=== PATIENT | male | born 1995 | race African-American/Black ===

== ENCOUNTER 2016-08-05 21:27 | Emergency (ER) | payer MEDICARE, OTHER ==
[~2016-08-05] VITALS: Ht 172.7 cm; Wt 73.0 kg
[~2016-08-05 21:27] MED LIST: MONT10TA4 PO; PULM90IN INH; VENTAER INH
[2016-08-05 21:29] VITALS: BP 152/88; PULSE 116; RESP 16; TEMP 97.8; O2SAT 100
[2016-08-06 03:14] LABS: AUTOMATED NEUTROPHIL # 5.5 TH/MM3 (1.8-7.7); BASOPHIL % 0.2 % (0.0-2.0); EOSINOPHIL # 0.2 TH/MM3 (0-0.4); EOSINOPHIL % 2.1 % (0.0-4.0); HEMATOCRIT 41.4 % (39.0-51.0); HEMO FLAGS DIFF FINAL; LYMPH % 26.6 % (9.0-44.0); LYMPHOCYTE # 2.3 TH/MM3 (1.0-4.8); MEAN CELL VOLUME 89.8 FL (80.0-100.0); MEAN CORPUSCULAR HEMOGLOBIN 30.7 PG (27.0-34.0); MEAN CORPUSCULAR HGB CONC 34.2 % (32.0-36.0); MONO % 8.4 % (0.0-8.0); NEUT % 62.7 % (16.0-70.0); PLATELET COUNT 287 TH/MM3 (150-450); RED BLOOD COUNT 4.61 MIL/MM3 (4.50-5.90); RED CELL DISTRIBUTION WIDTH 12.1 % (11.6-17.2); WHITE BLOOD COUNT 8.8 TH/MM3 (4.0-11.0)
[2016-08-06 03:20] LABS: BLOOD, URINE NEG (NEG); COMMENT (UR) CULT NOT INDICATED; CULTURE IF INDICATED CULT NOT INDICATED; GLUCOSE,URINE NEG (NEG); KETONE, URINE 40 mg/dL (NEG); MUCUS URINE MANY /lpf (OCC); NITRITE,URINE NEG (NEG); URINE COLOR DARK-YELLOW (YELLW/STRAW)
[2016-08-06] MEDS ORDERED: LORA10TA PO (03:30)
[2016-08-06 03:34] LABS: ALT (GPT) 24 U/L (12-78); ANION GAP 8 MEQ/L (5-15); AST (GOT) 18 U/L (15-37); BLOOD UREA NITROGEN 12 MG/DL (7-18); CHLORIDE 105 MEQ/L (98-107); GLOMERULAR FILTRATION RATE 106 ML/MIN (>89); POTASSIUM 3.9 MEQ/L (3.5-5.1); SODIUM (NA) 141 MEQ/L (136-145)
[2016-08-06 03:36] LABS: ALKALINE PHOSPHATASE 71 U/L (45-117); TOTAL BILIRUBIN ADULT 0.7 MG/DL (0.2-1.0)
[2016-08-06] MEDS ORDERED: PRED20 PO (03:58)
[2016-08-06] MEDS ORDERED: DICY10 PO (03:58)
--- NOTE | 2016-08-06 03:59 | PD ---
HPI Chief Complaint: Abdominal Pain Time Seen by Provider: 03:28 Travel History International Travel<30 days: No Contact w/Intl Traveler<30days: No Traveled to known affect area: No History of Present Illness HPI 20-year-old male pleasant no acute distress arrives complaining of pain in the abdomen. As a crampy quality. His been present for one day. His sister had similar complaint. He had one episode of diarrhea and one episode of vomiting. Both are nonbloody. Onset gradual. He reports history of asthma as well as wheezing. It is been slightly worse and normal for 3 days. He's had an occasional cough but no fever. His inhaler has been helpful. He has not been on steroids for 2 months. [facility] Past Medical History Asthma: Yes Cardiovascular Problems: No Diminished Hearing: No Gastrointestinal Disorders: No Respiratory: Yes (ASTHMA) Integumentary: Yes (ACNE) Immunizations Current: Yes Sickle Cell Disease: No Tetanus Vaccination: Unknown Influenza Vaccination: Yes Past Surgical History Surgical History: No Previous Surgery Other Surgery: Yes (HERNIA REPAIR AN ) Social History Alcohol Use: No Tobacco Use: Yes (black & milds) Substance Use: No Allergies-Medications (Allergen,Severity, Reaction): Coded Allergies: Amoxicillin (Verified Adverse Reaction, Severe, Nausea/Vomiting, 08/05/16) Naproxen (Verified Adverse Reaction, Mild, 08/05/16) GI VOMITING AND DIARRHEA Reported Meds & Prescriptions Reported Meds & Active Scripts Active Ventolin Hfa 18 GM Inh (Albuterol Sulfate) 90 Mcg/Act Aer 2 Puff INH Q4-6H PRN Reported Loratadine 10 Mg Tab 10 Mg PO DAILY Review of Systems Except as stated in HPI: all other systems reviewed are Neg General / Constitutional: No: Fever Gastrointestinal: Positive: Other (abdominal cramping) Physical Exam Narrative GENERAL: 20 yo F, NAD, WNWD SKIN: Warm and dry. HEAD: Atraumatic. Normocephalic. EYES: Pupils equal and round. No scleral icterus. No injection or drainage. ENT: No nasal bleeding or discharge. Mucous membranes pink and moist. NECK: Trachea midline. No JVD. CARDIOVASCULAR: Regular rate and rhythm. RESPIRATORY: No accessory muscle use. Clear to auscultation. Breath sounds equal bilaterally. GASTROINTESTINAL: Soft. No tenderness at McBurney's point. MUSCULOSKELETAL: Extremities without clubbing, cyanosis, or edema. No obvious deformities. NEUROLOGICAL: Awake and alert. No obvious cranial nerve deficits. Motor grossly within normal limits. Five out of 5 muscle strength in the arms and legs. Normal speech. PSYCHIATRIC: Appropriate mood and affect; insight and judgment normal. Data Data Last Documented VS Vital Signs Date Time Temp Pulse Resp B/P Pulse Ox O2 Delivery O2 Flow Rate FiO2 08/06/16 03:27 16 08/05/16 21:29 97.8 116 152/88 100 Room Air Orders Complete Blood Count With Diff (08/06/16 02:41) Comprehensive Metabolic Panel (08/06/16 02:41) Urinalysis - C+S If Indicated (08/06/16 02:41) Lipase (08/06/16 02:41) Labs Laboratory Tests Test 08/06/16 02:50 White Blood Count 8.8 TH/MM3 Red Blood Count 4.61 MIL/MM3 Hemoglobin 14.1 GM/DL Hematocrit 41.4 % Mean Corpuscular Volume 89.8 FL Mean Corpuscular Hemoglobin 30.7 PG Mean Corpuscular Hemoglobin 34.2 % Concent Red Cell Distribution Width 12.1 % Platelet Count 287 TH/MM3 Mean Platelet Volume 9.0 FL Neutrophils (%) (Auto) 62.7 % Lymphocytes (%) (Auto) 26.6 % Monocytes (%) (Auto) 8.4 % Eosinophils (%) (Auto) 2.1 % Basophils (%) (Auto) 0.2 % Neutrophils # (Auto) 5.5 TH/MM3 Lymphocytes # (Auto) 2.3 TH/MM3 Monocytes # (Auto) 0.7 TH/MM3 Eosinophils # (Auto) 0.2 TH/MM3 Basophils # (Auto) 0.0 TH/MM3 CBC Comment DIFF FINAL Differential Comment Urine Color DARK-YELLOW Urine Turbidity CLEAR Urine pH 6.0 Urine Specific [place] 1.039 Urine Protein 30 mg/dL Urine Glucose (UA) NEG mg/dL Urine Ketones 40 mg/dL Urine Occult Blood NEG Urine Nitrite NEG Urine Bilirubin NEG Urine Urobilinogen GREATER THAN 12.0 MG/DL Urine Leukocyte Esterase NEG Urine RBC 3 /hpf Urine WBC 2 /hpf Urine Mucus MANY /lpf Microscopic Urinalysis Comment CULT NOT INDICATED Sodium Level 141 MEQ/L Potassium Level 3.9 MEQ/L Chloride Level 105 MEQ/L Carbon Dioxide Level 28.0 MEQ/L Anion Gap 8 MEQ/L Blood Urea Nitrogen 12 MG/DL Creatinine 1.06 MG/DL Estimat Glomerular Filtration 106 ML/MIN Rate Random Glucose 70 MG/DL Calcium Level 9.0 MG/DL Total Bilirubin 0.7 MG/DL Aspartate Amino Transf 18 U/L (AST/SGOT) Alanine Aminotransferase 24 U/L (ALT/SGPT) Alkaline Phosphatase 71 U/L Total Protein 9.8 GM/DL Albumin 3.8 GM/DL Lipase 118 U/L [facility] Medical Decision Making Medical Screen Exam Complete: Yes Emergency Medical Condition: Yes Medical Record Reviewed: Yes Differential Diagnosis Constipation, Gastritis, Acute Cholecystitis, Biliary Colic, Pancreatitis, GALAVIZ , Hepatitis, Bowel Obstruction, Cystitis, Mesenteric Ischemia, AAA, Appendicitis , Renal Stone/Hydronephrosis, GERD, perforated viscous Narrative Course LFTs normal Lipase 118 UA: No UTI CBC & BMP Diagram 08/06/16 02:50 Abdomen benign. Return precautions discussed. Diagnosis Primary Impression: Abdominal cramping Additional Impression: Asthma Qualified Code: J45.20 - Mild intermittent asthma without complication Referrals: Primary Care Physician 2 days Additional Instructions: You have a choice when it comes to health care, and we are glad that you chose [facility]. Hopefully, we have met your expectations on today's visit. You are welcome to return to [facility] at any time, as we are committed to meeting the health care needs of our community. Med/Other Pt SpecificInfo: Prescription(s) given Scripts Dicyclomine (Bentyl)10 Mg Cap10 Mg PO TID PRN (Bowel Management) #10 CAP Ref 0 Prov:Conrad Flores MD 08/06/16 Prednisone 20 Mg Tab40 Mg PO DAILY 4 Days Ref 0 Prov:Conrad Flores MD 08/06/16 Disposition: DISCHARGE HOME Condition: Stable Conrad Flores MD Aug 06, 2016 03:59
[2016-08-06] MEDS ORDERED: DICYCLOMINE HCL 10 MG CAP PO ONE (04:30)
== END 2016-08-06 04:38 | disposition home or self-care (01) ==
LOC: NEPE 21:27
DX: R10.9 Unspecified abdominal pain (principal); J45.20 Mild intermittent asthma, uncomplicated; R19.7 Diarrhea, unspecified; R11.10 Vomiting, unspecified; Z72.0 Tobacco use
CPT/HCPCS: 80053; 81001; 83690; 85025; 99284

== ENCOUNTER 2016-12-04 11:18 | Emergency (ER) | payer MEDICARE, OTHER ==
[~2016-12-04] VITALS: Ht 172.7 cm; Wt 80.0 kg
[~2016-12-04 11:18] MED LIST changes: +DICY10 PO; +LORA10TA PO; -MONT10TA4 PO; +PRED20 PO; -PULM90IN INH
[2016-12-04 11:19] VITALS: BP 139/80; PULSE 75; RESP 20; TEMP 97.6; O2SAT 100
--- NOTE | 2016-12-04 11:25 | PD ---
Physical Exam Date Seen by Provider: Dec 04, 2016 Time Seen by Provider: 11:24 Data Data Last Documented VS Vital Signs Date Time Temp Pulse Resp B/P Pulse Ox O2 Delivery O2 Flow Rate FiO2 12/04/16 11:19 97.6 75 20 139/80 100 Room Air MDM Supervised Visit with ABDIRIZAK: No Narrative Course 21 YO male right RLQ 9/10 abdominal pain x 6 days. --N/V, fever, dysuria. Vitals reviewed. Awaiting bed placement. Candie Riley Dec 04, 2016 11:25
[2016-12-04] MEDS ORDERED: SODIUM CHLOR 0.9% 1000 ML INJ 1,000 ML IV SCH (11:33)
--- NOTE | 2016-12-04 11:33 | PD ---
HPI . Abdominal pain for 3-4 days Chief Complaint: Abdominal Pain Time Seen by Provider: 11:27 Travel History International Travel<30 days: No Contact w/Intl Traveler<30days: No Traveled to known affect area: No History of Present Illness HPI 21-year-old male with history of asthma and allergies here with complaints of epigastric abdominal pain for the past 3-4 days. Patient tells me that he developed abdominal pain out of the blue and thinks that it may be related to him drinking alcohol and not eating regularly. He rates the pain as 10/10 without any radiation. He has a hard time describing it. He admits to intermittent nausea and tells me that it's very mild today. He is not having episodes of vomiting, diarrhea or constipation. He does admit to binge drinking on the weekends to where he is intoxicated. For the past several days he is only been eating bread, as this does not cause any discomfort to his stomach. He has not seen anyone else about this pain. He denies any chest pain or shortness of breath. He has no other complaints. In regards to his naproxen allergy, he says he thought he was allergic but he is not allergic. PFSH Past Medical History Asthma: Yes Cardiovascular Problems: No Diminished Hearing: No Gastrointestinal Disorders: No Respiratory: Yes (ASTHMA) Integumentary: Yes (ACNE) Immunizations Current: Yes Sickle Cell Disease: No Past Surgical History Other Surgery: Yes (HERNIA REPAIR AN ) Social History Alcohol Use: No Tobacco Use: Yes (black & milds) Substance Use: No Allergies-Medications (Allergen,Severity, Reaction): Coded Allergies: Amoxicillin (Verified Adverse Reaction, Severe, Nausea/Vomiting, 08/05/16) Naproxen (Verified Adverse Reaction, Mild, 08/05/16) GI VOMITING AND DIARRHEA Reported Meds & Prescriptions Reported Meds & Active Scripts Active Carafate Liq (Sucralfate) 1 Gm/10 Ml Susp 1 Gm PO QID 5 Days on empty stomach Ventolin Hfa 18 GM Inh (Albuterol Sulfate) 90 Mcg/Act Aer 2 Puff INH Q4-6H PRN Reported Allergy Relief (Loratadine) 10 Mg Tab 10 Mg PO DAILY Review of Systems General / Constitutional: No: Fever Eyes: No: Visual changes HENT: No: Headaches Cardiovascular: No: Chest Pain or Discomfort Respiratory: No: Shortness of Breath Gastrointestinal: Positive: Nausea, Abdominal Pain, No: Vomiting, Diarrhea Genitourinary: No: Dysuria Musculoskeletal: No: Pain Skin: No Rash Neurologic: No: Weakness Psychiatric: No: Depression Endocrine: No: Polydipsia Hematologic/Lymphatic: No: Easy Bruising Physical Exam Narrative GENERAL: AAO x 3, no acute distress, Well-nourished, well-developed patient. SKIN: Warm and dry. No visible rashes or bruising. Normal skin turgor HEAD: Normocephalic and atraumatic. EYES: No scleral icterus. No injection or drainage. EOM intact, PERRLA ENT: No nasal drainage noted. Mucous membranes pink. Airway patent. Dry mucous membranes. NECK: Supple, trachea midline. No JVD. No lymphadenopathy CARDIOVASCULAR: Regular rate and rhythm without murmurs, gallops, or rubs. RESPIRATORY: Breath sounds equal bilaterally. No accessory muscle use. No rhonchi or rales. GASTROINTESTINAL: Abdomen soft, tenderness to palpation of the epigastric area, no rebound or guarding. No McBurney's point tenderness. EXTREMITIES: No cyanosis or edema. BACK: Nontender without obvious deformity. No CVA tenderness. 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 Data Data Last Documented VS Vital Signs Date Time Temp Pulse Resp B/P Pulse Ox O2 Delivery O2 Flow Rate FiO2 12/04/16 11:38 18 12/04/16 11:19 97.6 75 139/80 100 Room Air Orders Complete Blood Count With Diff (12/04/16 11:33) Comprehensive Metabolic Panel (12/04/16 11:33) Lipase (12/04/16 11:33) Urinalysis - C+S If Indicated (12/04/16 11:33) Ct Abd/Pel W Iv Contrast(Rout) (12/04/16 11:33) Iv Access Insert/Monitor (12/04/16 11:33) NPO (12/04/16 11:33) Ondansetron Inj (Zofran Inj) (12/04/16 11:45) Sodium Chlor 0.9% 1000 Ml Inj (Ns 1000 M (12/04/16 11:33) Sodium Chloride 0.9% Flush (Ns Flush) (12/04/16 11:45) Acetaminophen (Tylenol) (12/04/16 11:45) Oral Contrast - Adult (12/04/16 11:38) Diatrizoate Liq ( Gastroview Liq) (12/04/16 11:47) Iohexol 350 Inj (Omnipaque 350 Inj) (12/04/16 13:35) Labs Laboratory Tests Test 12/04/16 12/04/16 11:53 11:57 Urine Color YELLOW Urine Turbidity HAZY Urine pH 8.5 Urine Specific [place] 1.032 Urine Protein 30 mg/dL Urine Glucose (UA) NEG mg/dL Urine Ketones NEG mg/dL Urine Occult Blood NEG Urine Nitrite NEG Urine Bilirubin NEG Urine Urobilinogen 4.0 MG/DL Urine Leukocyte Esterase NEG Urine RBC 1 /hpf Urine WBC 2 /hpf Urine Squamous Epithelial <1 /hpf Cells Urine Mucus FEW /lpf Microscopic Urinalysis Comment CULT NOT INDICATED White Blood Count 4.4 TH/MM3 Red Blood Count 4.63 MIL/MM3 Hemoglobin 13.6 GM/DL Hematocrit 42.3 % Mean Corpuscular Volume 91.4 FL Mean Corpuscular Hemoglobin 29.4 PG Mean Corpuscular Hemoglobin 32.1 % Concent Red Cell Distribution Width 12.1 % Platelet Count 274 TH/MM3 Mean Platelet Volume 8.8 FL Neutrophils (%) (Auto) 54.2 % Lymphocytes (%) (Auto) 33.8 % Monocytes (%) (Auto) 10.1 % Eosinophils (%) (Auto) 1.6 % Basophils (%) (Auto) 0.3 % Neutrophils # (Auto) 2.4 TH/MM3 Lymphocytes # (Auto) 1.5 TH/MM3 Monocytes # (Auto) 0.4 TH/MM3 Eosinophils # (Auto) 0.1 TH/MM3 Basophils # (Auto) 0.0 TH/MM3 CBC Comment DIFF FINAL Differential Comment Sodium Level 141 MEQ/L Potassium Level 3.4 MEQ/L Chloride Level 104 MEQ/L Carbon Dioxide Level 30.6 MEQ/L Anion Gap 6 MEQ/L Blood Urea Nitrogen 14 MG/DL Creatinine 1.15 MG/DL Estimat Glomerular Filtration 96 ML/MIN Rate Random Glucose 90 MG/DL Calcium Level 9.0 MG/DL Total Bilirubin 0.4 MG/DL Aspartate Amino Transf 19 U/L (AST/SGOT) Alanine Aminotransferase 23 U/L (ALT/SGPT) Alkaline Phosphatase 70 U/L Total Protein 9.6 GM/DL Albumin 4.1 GM/DL Lipase 120 U/L [facility] Medical Decision Making Medical Screen Exam Complete: Yes Emergency Medical Condition: Yes Medical Record Reviewed: Yes Differential Diagnosis Gastric ulcer, peptic ulcer disease, cholecystitis, cholelithiasis, appendicitis , Narrative Course Last Impressions Abdomen/Pelvis CT 12/04/16 1133 Signed Impressions: Service Date/Time: Sunday, December 04, 2016 13:22 - CONCLUSION: Negative exam. No acute intracranial or pelvic process to explain current clinical symptoms. Aidan Hansen MD Laboratory Tests Test 12/04/16 12/04/16 11:53 11:57 Urine Color YELLOW Urine Turbidity HAZY Urine pH 8.5 Urine Specific [place] 1.032 Urine Protein 30 mg/dL Urine Glucose (UA) NEG mg/dL Urine Ketones NEG mg/dL Urine Occult Blood NEG Urine Nitrite NEG Urine Bilirubin NEG Urine Urobilinogen 4.0 MG/DL Urine Leukocyte Esterase NEG Urine RBC 1 /hpf Urine WBC 2 /hpf Urine Squamous Epithelial <1 /hpf Cells Urine Mucus FEW /lpf Microscopic Urinalysis Comment CULT NOT INDICATED White Blood Count 4.4 TH/MM3 Red Blood Count 4.63 MIL/MM3 Hemoglobin 13.6 GM/DL Hematocrit 42.3 % Mean Corpuscular Volume 91.4 FL Mean Corpuscular Hemoglobin 29.4 PG Mean Corpuscular Hemoglobin 32.1 % Concent Red Cell Distribution Width 12.1 % Platelet Count 274 TH/MM3 Mean Platelet Volume 8.8 FL Neutrophils (%) (Auto) 54.2 % Lymphocytes (%) (Auto) 33.8 % Monocytes (%) (Auto) 10.1 % Eosinophils (%) (Auto) 1.6 % Basophils (%) (Auto) 0.3 % Neutrophils # (Auto) 2.4 TH/MM3 Lymphocytes # (Auto) 1.5 TH/MM3 Monocytes # (Auto) 0.4 TH/MM3 Eosinophils # (Auto) 0.1 TH/MM3 Basophils # (Auto) 0.0 TH/MM3 CBC Comment DIFF FINAL Differential Comment Sodium Level 141 MEQ/L Potassium Level 3.4 MEQ/L Chloride Level 104 MEQ/L Carbon Dioxide Level 30.6 MEQ/L Anion Gap 6 MEQ/L Blood Urea Nitrogen 14 MG/DL Creatinine 1.15 MG/DL Estimat Glomerular Filtration 96 ML/MIN Rate Random Glucose 90 MG/DL Calcium Level 9.0 MG/DL Total Bilirubin 0.4 MG/DL Aspartate Amino Transf 19 U/L (AST/SGOT) Alanine Aminotransferase 23 U/L (ALT/SGPT) Alkaline Phosphatase 70 U/L Total Protein 9.6 GM/DL Albumin 4.1 GM/DL Lipase 120 U/L 21-year-old male here with complaints of epigastric abdominal pain for the past 3-4 days. On physical examination he has tenderness to the epigastric area on deep palpation. He does not have any McBurney point tenderness, rebound or guarding. He also appears dehydrated. Labs and CT scan of abdomen and pelvis have been ordered. I have provided him with IV fluids. He does report some mild nausea, therefore I have given him some Zofran. There are no acute findings to explain patient's symptoms. It is possible he has a small ulcer. I have provided him some carafate. I recommend f/u with PCP and GI is symptoms continue. Patient verbalized understanding of instructions, questions were answered, and thanked me for their care. I advised them if their condition worsens, please return to the nearest emergency room for further care. Diagnosis Primary Impression: Abdominal cramping Patient Instructions: General Instructions Additional Instructions: Please return to emergency department if your symptoms return or worsen. Follow up with your primary care provider. Take medications as prescribed. Med/Other Pt SpecificInfo: Prescription(s) given Scripts Sucralfate Liq (Carafate Liq)1 Gm/10 Ml Susp1 Gm PO QID 5 Days Ref 0 on empty stomach Prov:Issa Mena MD 12/04/16 Disposition: 01 DISCHARGE HOME Condition: Stable Julianna Harris Dec 04, 2016 11:33
[2016-12-04] MEDS ORDERED: ALLE10TA PO (11:37)
[2016-12-04] MEDS ORDERED: ONDANSETRON HCL 4 MG/2 ML VIAL IVP ONE (11:45)
[2016-12-04] MEDS ORDERED: SODIUM CHLORIDE 0.9% FLUSH 10 ML FLUSH IV FLUSH PRN (11:45)
[2016-12-04] MEDS ORDERED: ACETAMINOPHEN 325 MG TAB PO ONE (11:45)
[2016-12-04] MEDS ORDERED: DIATRIZOATE MEGLUM/DIATRIZOATE SOD 9 ML CUP ONE (11:47)
[2016-12-04 12:09] LABS: AUTOMATED NEUTROPHIL # 2.4 TH/MM3 (1.8-7.7); BASOPHIL % 0.3 % (0.0-2.0); EOSINOPHIL # 0.1 TH/MM3 (0-0.4); EOSINOPHIL % 1.6 % (0.0-4.0); HEMATOCRIT 42.3 % (39.0-51.0); HEMO FLAGS DIFF FINAL; LYMPH % 33.8 % (9.0-44.0); LYMPHOCYTE # 1.5 TH/MM3 (1.0-4.8); MEAN CELL VOLUME 91.4 FL (80.0-100.0); MEAN CORPUSCULAR HEMOGLOBIN 29.4 PG (27.0-34.0); MEAN CORPUSCULAR HGB CONC 32.1 % (32.0-36.0); MONO % 10.1 % (0.0-8.0); NEUT % 54.2 % (16.0-70.0); PLATELET COUNT 274 TH/MM3 (150-450); RED BLOOD COUNT 4.63 MIL/MM3 (4.50-5.90); RED CELL DISTRIBUTION WIDTH 12.1 % (11.6-17.2); WHITE BLOOD COUNT 4.4 TH/MM3 (4.0-11.0)
[2016-12-04 12:09] LABS: BLOOD, URINE NEG (NEG); COMMENT (UR) CULT NOT INDICATED; CULTURE IF INDICATED CULT NOT INDICATED; GLUCOSE,URINE NEG (NEG); KETONE, URINE NEG (NEG); MUCUS URINE FEW /lpf (OCC); NITRITE,URINE NEG (NEG); PH, URINE 8.5 (5.0-8.5); SQUAMOUS EPITHELIAL CELL URINE <1 /hpf (0-5); URINE COLOR YELLOW (YELLW/STRAW)
[2016-12-04 12:35] LABS: ANION GAP 6 MEQ/L (5-15); AST (GOT) 19 U/L (15-37); BICARBONATE 30.6 MEQ/L (21.0-32.0); BLOOD UREA NITROGEN 14 MG/DL (7-18); CHLORIDE 104 MEQ/L (98-107); GLOMERULAR FILTRATION RATE 96 ML/MIN (>89); POTASSIUM 3.4 MEQ/L (3.5-5.1); SODIUM (NA) 141 MEQ/L (136-145)
[2016-12-04 12:38] LABS: ALKALINE PHOSPHATASE 70 U/L (45-117); ALT (GPT) 23 U/L (12-78); TOTAL BILIRUBIN ADULT 0.4 MG/DL (0.2-1.0)
[2016-12-04] MEDS ORDERED: IOHEXOL 350 MG/ML 10 ML VIAL (for RAD DIAG) IV ONE (13:35)
--- NOTE | 2016-12-04 14:12 | RADRPT ---
EXAM DATE/TIME: 12/04/2016 13:22 [place] COMPARISON: CT ABDOMEN & PELVIS W CONTRAST, March 17, 2015, 7:56. INDICATIONS : Epigastric pain for 4 days. IV CONTRAST: 95 cc Omnipaque 350 (iohexol) IV ORAL CONTRAST: Prescribed oral contrast ingested. RADIATION DOSE: 6.10 CTDIvol (mGy) MEDICAL HISTORY : Asthma SURGICAL HISTORY : hernia repair ENCOUNTER: Initial ACUITY: 1 day PAIN SCALE: 2/10 LOCATION: upper quadrant TECHNIQUE: Volumetric scanning of the abdomen and pelvis was performed. Using automated exposure control and ad justment of the mA and/or kV according to patient size, radiation dose was kept as low as reasonably achievable to obtain optimal diagnostic quality images. FINDINGS: LOWER LUNGS: The visualized lower lungs are clear. LIVER: Homogeneous density without lesion. There is no dilation of the biliary tree. No calcified gallston es. SPLEEN: Normal size without lesion. PANCREAS: Within normal limits. KIDNEYS: Normal in size and shape. There is no mass, stone or hydronephrosis. ADRENAL GLANDS: Within normal limits. VASCULAR: There is no aortic aneurysm. BOWEL/MESENTERY: The stomach, small bowel, and colon demonstrate no acute abnormality. There is no free intraperitone al air or fluid. ABDOMINAL WALL: Within normal limits. RETROPERITONEUM: There is no lymphadenopathy. BLADDER: No wall thickening or mass. REPRODUCTIVE: Within normal limits. INGUINAL: There is no lymphadenopathy or hernia. MUSCULOSKELETAL: Within normal limits for patient age. CONCLUSION: Negative exam. No acute intracranial or pelvic process to explain current clinical symptoms. Aidan Hansen MD on December 04, 2016 at 14:08 Board Certified Radiologist. This report was verified electronically.
[2016-12-04] MEDS ORDERED: CARA1SUS3 PO (14:16)
== END 2016-12-04 14:37 | disposition home or self-care (01) ==
LOC: NEPD 11:18
DX: R10.13 Epigastric pain (principal); J45.909 Unspecified asthma, uncomplicated; Z72.0 Tobacco use
CPT/HCPCS: 74177; 80053; 81001; 83690; 85025; 96361; 96374; 99285; J2405; J7030; Q9963; Q9967

== ENCOUNTER 2017-06-27 22:07 | Emergency (ER) | payer MEDICARE, OTHER ==
[~2017-06-27] VITALS: Ht 177.8 cm; Wt 73.5 kg
[~2017-06-27 22:07] MED LIST changes: +CARA1SUS3 PO; +CEPH-460 PO; -DICY10 PO; +LORA-650 PO; -LORA10TA PO; -PRED20 PO
[2017-06-27 22:14] VITALS: BP 134/69; PULSE 95; RESP 16; TEMP 98.4; O2SAT 97
[2017-06-27] MEDS ORDERED: PRED5TAB PO (22:24)
[2017-06-27] MEDS ORDERED: MONT10TA2 PO (22:24)
[2017-06-27] MEDS ORDERED: TRAM50TA PO (22:31)
--- NOTE | 2017-06-27 22:34 | PD ---
HPI Chief Complaint: Oral / Dental Pain or Problem Time Seen by Provider: 22:22 Travel History International Travel<30 days: No Contact w/Intl Traveler<30days: No Traveled to known affect area: No History of Present Illness HPI This patient complains of dental pain. Duration 2 months. Severity is mild. No alleviating factors. He has not been to a dentist [facility] Past Medical History Asthma: Yes Cardiovascular Problems: No Diminished Hearing: No Gastrointestinal Disorders: No Respiratory: Yes (ASTHMA) Integumentary: Yes (ACNE) Immunizations Current: Yes Sickle Cell Disease: No Tetanus Vaccination: > 5 Years Influenza Vaccination: Yes Past Surgical History Other Surgery: Yes (HERNIA REPAIR AN INFANT) Social History Alcohol Use: No Tobacco Use: Yes (black & milds) Substance Use: No Allergies-Medications (Allergen,Severity, Reaction): Coded Allergies: amoxicillin (Unverified Adverse Reaction, Severe, Nausea/Vomiting, ) naproxen (Unverified Adverse Reaction, Mild, 06/27/17) GI VOMITING AND DIARRHEA Reported Meds & Prescriptions Reported Meds & Active Scripts Active Tramadol (Tramadol HCl) 50 Mg Tab 50 Mg PO Q6H PRN Ventolin Hfa 18 GM Inh (Albuterol Sulfate) 90 Mcg/Act Aer 2 Puff INH Q4-6H PRN Reported Prednisone 5 Mg Tab 5 Mg PO DAILY Singulair (Montelukast Sodium) 10 Mg Tab 10 Mg PO HS Review of Systems General / Constitutional: No: Fever HENT: No: Headaches Cardiovascular: No: Chest Pain or Discomfort Physical Exam Narrative SKIN: Focused skin assessment reveals no rash or ulcers. Skin is warm and dry. Palpation shows no induration or nodules. NECK: Symmetrical appearance, midline trachea. No mass or crepitus. Thyroid without enlargement, tenderness, or mass. Oral cavity: No gingivitis. Uvula midline. Has a filling. Tooth he's having pain in looks normal Data Data Last Documented VS Vital Signs Date Time Temp Pulse Resp B/P (MAP) Pulse Ox O2 Delivery O2 Flow Rate FiO2 06/27/17 22:25 (90) 06/27/17 22:14 98.4 95 16 97 MDM Medical Decision Making Medical Screen Exam Complete: Yes Emergency Medical Condition: Yes Medical Record Reviewed: Yes Differential Diagnosis Dental pain, cavity, gingivitis Narrative Course I have reviewed the patient's electronic medical record. Nothing really objective to see here. He has 2 months of dental pain. He should get a dental evaluation. I wrote him 15 tramadol to use as needed for symptom relief Diagnosis Primary Impression: Chronic dental pain Additional Instructions: Follow-up with dentist The patient was warned about potential sedation for the medications they will receive on prescription. Med/Other Pt SpecificInfo: Prescription(s) given Scripts Tramadol (Tramadol) 50 Mg Tab 50 MG PO Q6H Y for PAIN, #15 TAB 0 Refills Prov: Issa Mena MD 06/27/17 Disposition: DISCHARGE HOME Condition: Stable Issa Mena MD Jun 27, 2017 22:34
== END 2017-06-27 22:43 | disposition home or self-care (01) ==
LOC: PHEFT 22:07
DX: K08.89 Other specified disorders of teeth and supporting structures (principal); G89.29 Other chronic pain; J45.909 Unspecified asthma, uncomplicated; Z72.0 Tobacco use
CPT/HCPCS: 99283

== ENCOUNTER 2017-07-14 03:13 | Emergency (ER) | payer MEDICARE, OTHER ==
[~2017-07-14] VITALS: Ht 180.3 cm; Wt 80.0 kg
[~2017-07-14 03:13] MED LIST changes: -CARA1SUS3 PO; -CEPH-460 PO; -LORA-650 PO; +MONT10TA2 PO; +PRED5TAB PO; +TRAM50TA PO
[2017-07-14 03:16] VITALS: BP 134/79; PULSE 88; RESP 16; TEMP 98.7; O2SAT 99
[2017-07-14] MEDS ORDERED: IBUPROFEN 800 MG TAB PO ONE (03:30)
--- NOTE | 2017-07-14 03:46 | PD ---
HPI Chief Complaint: Cold / Flu Symptoms Time Seen by Provider: 03:25 Travel History International Travel<30 days: No Contact w/Intl Traveler<30days: No Traveled to known affect area: No History of Present Illness HPI 21-year-old black male presents to emergency department with a 2-3 day history of subjective fever and chills, sore throat, runny nose, sinus congestion, cough and general malaise. He has had some mild arthralgias and myalgias. He denies any shortness of breath or wheezing. No nausea vomiting. No abdominal pain or diarrhea. Patient states that multiple people at work and been sick. He did not get the flu shot this year. He does have a history of asthma. [facility] Past Medical History Narrative Medical Asthma Asthma: Yes Cardiovascular Problems: No Diminished Hearing: No Gastrointestinal Disorders: No Genitourinary: No Musculoskeletal: No Neurologic: No Psychiatric: No Respiratory: Yes (ASTHMA) Integumentary: Yes (ACNE) Immunizations Current: Yes Sickle Cell Disease: No Past Surgical History Other Surgery: Yes (HERNIA REPAIR AN INFANT) Social History Alcohol Use: No Tobacco Use: Yes (black & milds) Substance Use: No Allergies-Medications (Allergen,Severity, Reaction): Coded Allergies: amoxicillin (Unverified Adverse Reaction, Severe, Nausea/Vomiting, 07/14/17 ) naproxen (Unverified Adverse Reaction, Mild, 07/14/17) GI VOMITING AND DIARRHEA Reported Meds & Prescriptions Reported Meds & Active Scripts Active Tramadol (Tramadol HCl) 50 Mg Tab 50 Mg PO Q6H PRN Ventolin Hfa 18 GM Inh (Albuterol Sulfate) 90 Mcg/Act Aer 2 Puff INH Q4-6H PRN Reported Prednisone 5 Mg Tab 5 Mg PO DAILY Singulair (Montelukast Sodium) 10 Mg Tab 10 Mg PO HS Review of Systems Except as stated in HPI: all other systems reviewed are Neg Physical Exam Narrative GENERAL: Well-developed, well-nourished in no acute distress. Nontoxic appearing. HEAD: Normocephalic, atraumatic. EYES: Pupils equal round and reactive. Extraocular motions intact. No scleral icterus. No injection or drainage. ENT: TMs clear without erythema. The external auditory canals clear. Nose: clear rhinorrhea . Posterior pharynx is mildly erythematous and moist. No tonsillar edema or exudate. Uvula midline. Airway patent. NECK: Trachea midline.Supple, nontender, moves head freely. No central bony tenderness or spasm. CARDIOVASCULAR: Regular rate and rhythm without murmurs, gallops, or rubs. RESPIRATORY: Clear to auscultation. Breath sounds equal bilaterally. No wheezes , rales, or rhonchi. GASTROINTESTINAL: Abdomen soft, non-tender, nondistended. No hepato-splenomegaly , or palpable masses. No guarding. EXTREMITIES: No clubbing, cyanosis, or edema. No joint tenderness, effusion, or edema noted. BACK: Nontender without deformity or crepitance. No flank tenderness. Data Data Last Documented VS Vital Signs Date Time Temp Pulse Resp B/P (MAP) Pulse Ox O2 Delivery O2 Flow Rate FiO2 07/14/17 03:16 98.7 88 16 134/79 (97) 99 Orders Orders Influenzae A/B Antigen (07/14/17 03:28) Ibuprofen (Motrin) (07/14/17 03:30) Ed Discharge Order (07/14/17 04:18) MDM Medical Decision Making Medical Screen Exam Complete: Yes Emergency Medical Condition: Yes Medical Record Reviewed: Yes Interpretation(s) Rapid influenza: Negative Differential Diagnosis MDM: High Differential diagnoses: Pneumonia, bronchitis, URI, asthma, RAD, influenza, strep throat, sinusitis Narrative Course Patient given Motrin 800 mg by mouth rapid influenza The influenza test is negative. This is an influenza-like upper respiratory tract infection. Patient is advised symptomatic care. Diagnosis Primary Impression: Influenza-like illness Patient Instructions: General Instructions Departure Forms: Tests/Procedures, Work Release Special Instructions: No work 3 days. Additional Instructions: Rest. Increase fluids. Afrin nasal spray for 3 days only. Mucinex D or Robitussin cough and cold. 3 Advil every 6 hours as needed for fever or pain. Follow-up with a primary care doctor next 3-7 days. Return to the ER if any problems. Med/Other Pt SpecificInfo: No Meds Exist/No RX given Disposition: 01 DISCHARGE HOME Condition: Stable Yoni Duarte Jul 14, 2017 03:46
== END 2017-07-14 05:36 | disposition home or self-care (01) ==
LOC: NEPD 03:13
DX: J06.9 Acute upper respiratory infection, unspecified (principal); J45.909 Unspecified asthma, uncomplicated; Z72.0 Tobacco use; Z79.899 Other long term (current) drug therapy; Z88.0 Allergy status to penicillin; Z88.6 Allergy status to analgesic agent
CPT/HCPCS: 87804; 99283

== ENCOUNTER 2017-12-17 17:48 | Emergency (ER) | payer MEDICARE, OTHER ==
[~2017-12-17] VITALS: Ht 175.3 cm; Wt 76.0 kg
[2017-12-17 17:51] VITALS: BP 152/68; PULSE 90; RESP 15; TEMP 98.2; O2SAT 100
[2017-12-17] MEDS ORDERED: HYDR2.5%T RECTAL (19:13)
--- NOTE | 2017-12-17 19:17 | PD ---
HPI Chief Complaint: GI Complaint Time Seen by Provider: 19:07 Travel History International Travel<30 days: No Contact w/Intl Traveler<30days: No Traveled to known affect area: No History of Present Illness HPI 22-year-old black male presents emergency department complains of itching, burning and some slight blood when he wipes his rectum over the last few days. He states that he is unsure whether he has developed hemorrhoids. He sits on hard surfaces at work. He denies any nausea or vomiting. No abdominal pain or diarrhea. No urinary symptoms. No hematuria. He denies any anal intercourse. Symptoms are mild. No exacerbating or alleviating factors. PFSH Past Medical History Asthma: Yes Cardiovascular Problems: No Diminished Hearing: No Gastrointestinal Disorders: No Genitourinary: No Musculoskeletal: No Neurologic: No Psychiatric: No Respiratory: Yes (ASTHMA) Integumentary: Yes (ACNE) Immunizations Current: Yes Sickle Cell Disease: No Tetanus Vaccination: Unknown Influenza Vaccination: Yes Past Surgical History Other Surgery: Yes (HERNIA REPAIR AN ) Social History Alcohol Use: No Tobacco Use: Yes (black & milds) Substance Use: No Allergies-Medications (Allergen,Severity, Reaction): Coded Allergies: amoxicillin (Unverified Adverse Reaction, Severe, Nausea/Vomiting, 12/17/17 ) naproxen (Unverified Adverse Reaction, Mild, 12/17/17) GI VOMITING AND DIARRHEA Reported Meds & Prescriptions Reported Meds & Active Scripts Active Anusol-Hc Rectal (Hydrocortisone Rectal) 2.5% Cream 1 Applic RECTAL QID Tramadol (Tramadol HCl) 50 Mg Tab 50 Mg PO Q6H PRN Ventolin Hfa 18 GM Inh (Albuterol Sulfate) 90 Mcg/Act Aer 2 Puff INH Q4-6H PRN Reported Prednisone 5 Mg Tab 5 Mg PO DAILY Singulair (Montelukast Sodium) 10 Mg Tab 10 Mg PO HS Review of Systems Except as stated in HPI: all other systems reviewed are Neg Physical Exam Narrative GENERAL: Well-developed, well-nourished in no acute distress. Nontoxic appearing. Patient is examined with a nurse present. HEAD: Normocephalic, atraumatic. EYES: Pupils equal round and reactive. Extraocular motions intact. No scleral icterus. No injection or drainage. ENT: TMs clear without erythema. The external auditory canals clear. Nose: clear . Posterior pharynx is pink and moist. No tonsillar edema or exudate. Uvula midline. Airway patent. NECK: Trachea midline.Supple, nontender, moves head freely. No central bony tenderness or spasm. CARDIOVASCULAR: Regular rate and rhythm without murmurs, gallops, or rubs. RESPIRATORY: Clear to auscultation. Breath sounds equal bilaterally. No wheezes , rales, or rhonchi. GASTROINTESTINAL: Abdomen soft, non-tender, nondistended. No hepato-splenomegaly , or palpable masses. No guarding. EXTREMITIES: No clubbing, cyanosis, or edema. No joint tenderness, effusion, or edema noted. BACK: Nontender without deformity or crepitance. No flank tenderness. Rectal: Patient has an anal fissure identified. It is mildly tender. No gross bleeding. No obvious hemorrhoid externally. The rectum is not digitally examined. Data Data Last Documented VS Vital Signs Date Time Temp Pulse Resp B/P (MAP) Pulse Ox O2 Delivery O2 Flow Rate FiO2 12/17/17 17:51 98.2 90 15 152/68 (96) 100 Orders Orders Ed Discharge Order (12/17/17 19:11) [facility] Medical Decision Making Medical Screen Exam Complete: Yes Emergency Medical Condition: Yes Medical Record Reviewed: Yes Differential Diagnosis Differential diagnosis: GI bleed, hemorrhoid, fissure, abscess Narrative Course Patient appears to have a rectal fissure Diagnosis Primary Impression: Rectal fissure Patient Instructions: General Instructions Additional Instructions: Rest. Increase fluids. Anusol. Sitz bath 3 times daily. Follow-up with a primary care doctor in 3-7 days. Return to the ER if any problems. Med/Other Pt SpecificInfo: Prescription(s) given Scripts Hydrocortisone Rectal (Anusol-Hc Rectal) 2.5% Cream 1 APPLIC RECTAL QID for Itching/Inflammation, #30 GM 0 Refills Prov: Montse Lovett MD 12/17/17 Disposition: 01 DISCHARGE HOME Condition: Stable Yoni Duarte Dec 17, 2017 19:16
== END 2017-12-17 19:29 | disposition home or self-care (01) ==
LOC: NEPK 17:48
DX: K60.2 Anal fissure, unspecified (principal); Z72.0 Tobacco use
CPT/HCPCS: 99282